=== PATIENT | male | born 1985 | race Caucasian/White ===

== ENCOUNTER 2017-10-13 04:45 | Emergency (ER) | payer MEDICAID, OTHER ==
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
[2017-10-13 06:07] VITALS: BP 117/96
== END 2017-10-13 06:18 | disposition home or self-care (01) ==
LOC: CED 04:45
PROC: 0RSKXZZ Reposition Left Shoulder Joint, External Approach (ICD-10-PCS; principal; 2017-10-13)
DX: M24.412 Recurrent dislocation, left shoulder (principal)
CPT/HCPCS: 73030-PO; 96374; J2270